=== PATIENT | male | born 1970 | race African-American/Black ===

== ENCOUNTER 2018-06-18 09:31 | Emergency (ER) | payer OTHER ==
[~2018-06-18] VITALS: Ht 177.8 cm; Wt 106.6 kg
[2018-06-18 09:35] VITALS: BP 184/103
[2018-06-18] MEDS ORDERED: NITROGLYCERIN 0.4 MG TAB SL ONE (09:55)
[2018-06-18] MEDS ORDERED: NITROGLYCERIN 2% 1 GM PKT TP ONE (09:55)
[2018-06-18] MEDS ORDERED: ASPIRIN 325 MG TAB PO ONE (09:55)
[2018-06-18 10:20] LABS: BASOPHILS % (AUTO) 0.8 % (0.0-2.0); EOSINOPHILS # (AUTO) 0.2 K/uL (0-0.4); HEMATOCRIT 46.3 % (36-52); HEMOGLOBIN 15.4 g/dL (12.0-18.0); LYMPHOCYTES # (AUTO) 1.2 K/uL (2.0-11.5); LYMPHOCYTES % (AUTO) 20.8 % (20.5-51.1); MEAN CORPUSCULAR HEMOGLOBIN 27 pg (27-31); MEAN CORPUSCULAR HGB CONC 33 g/dL (33-37); MEAN CORPUSCULAR VOLUME 80.3 fL (80-94); MONOCYTES # (AUTO) 0.4 K/uL (0.8-1.0); MONOCYTES % (AUTO) 6.6 % (1.7-9.3); NEUTROPHILS # (AUTO) 3.9 K/uL (1.8-7.7); NEUTROPHILS % (AUTO) 68.8 % (42.2-75.2); PLATELET COUNT (AUTO) 160 K/uL (140-450); RED BLOOD CELL COUNT(AUTO) 5.76 MIL/uL (4.20-6.10); RED CELL DISTRIBUTION WIDTH 13.7 % (11.6-13.7); WHITE BLOOD COUNT (AUTO) 5.7 K/uL (4.8-10.8)
[2018-06-18 10:37] LABS: BARBITURATE, URINE NEG. ng/ml (NEG <=200); BENZODIAZEPINE, URINE NEG. ng/mL (NEG <=200); CANNABINOID, URINE NEG. ng/mL (NEG <=50); COCAINE, URINE NEG. ng/mL (NEG <=300); OPIATE, URINE NEG. ng/mL (NEG <=2000); PHENCYCLIDINE SCREEN,URINE NEG. ng/mL (NEG <=25)
[2018-06-18 10:37] LABS: PROTHROMBIN TIME 9.6 secs (10.8-13.4)
[2018-06-18 10:38] LABS: ANION GAP 13.7 (8-16); CARBON DIOXIDE 26.4 mmol/L (21-32); CREATININE 1.2 mg/dL (0.7-1.3); POTASSIUM 4.1 mmol/L (3.5-5.1)
[2018-06-18 10:44] LABS: ALBUMIN 3.9 g/dL (3.4-5.0); TOTAL BILIRUBIN 0.4 mg/dL (0.0-1.0)
[2018-06-18] MEDS ORDERED: MORPHINE SULFATE 4 MG/ML SYR IVP ONE ×2 (10:45→12:10)
[2018-06-18 11:04] LABS: CREATINE KINASE MB 1.3 ng/mL (0-3.6)
[2018-06-18 12:57] VITALS: BP 138/81
== END 2018-06-18 12:57 | disposition short-term general hospital (02) ==
LOC: MED 09:31
DX: R07.89 Other chest pain (principal); I10 Essential (primary) hypertension
CPT/HCPCS: 36415; 71045; 80053; 80305; 82550; 82553; 83880; 84484; 85025; 85379; 85610; 85730; 86886; 86900; 86901; 93005; 96374; 96376; 99285; G0482; J2270; 99284